=== PATIENT | male | born 1955 | race African-American/Black ===

== ENCOUNTER 2017-08-24 11:04 | Inpatient (IN) | payer OTHER ==
[2017-08-24 11:16] VITALS: BMI 27.0
[2017-08-24] MEDS ORDERED: KETOROLAC TROMETHAMINE 30 MG/1 ML VIAL IVPUSH ONE (11:31)
[2017-08-24] MEDS ORDERED: SODIUM CHLORIDE 1,000 ML IV STA (11:31)
--- NOTE | 2017-08-24 11:36 | PDOC ---
History of Present Illness - General Chief Complaint: Pain Stated Complaint: ABD PAIN Time Seen by Provider: 08/24/17 11:25 History Source: Patient - History of Present Illness Timing/Duration: reports: constant, getting worse Quality: reports: moderate Abdominal Pain Onset Location: reports: generalized abdomen Past History - Past Medical History Allergies/Adverse Reactions: Allergies Allergy/AdvReac Type Severity Reaction Status Date / Time No Known Allergies Allergy Verified 08/24/17 11:12 Home Medications: Ambulatory Orders Cetirizine HCl [Zyrtec -] 10 mg PO DAILY 08/24/17 Multivitamins [Multivit ([facility] Formulary)] 1 tab PO DAILY 08/24/17 COPD: No HTN: Yes (non-compliant) - Suicide/Smoking/Psychosocial Hx Smoking History: Current every day smoker Number of Cigarettes Smoked Daily: 20 Information on smoking cessation initiated: Yes 'Breaking Loose' booklet given: 08/24/17 Hx Alcohol Use: No Drug/Substance Use Hx: No Substance Use Type: None Review of Systems - Review of Systems Constitutional: No: Chills, Fever ABD/GI: Yes: Constipated. No: Blood Streaked Bowels, Diarrhea, Nausea, Rectal Bleeding, Vomiting *Physical Exam - Vital Signs Last Vital Signs Temp Pulse Resp BP Pulse Ox 97.8 F 95 H 18 155/75 95 08/24/17 11:07 08/24/17 11:07 08/24/17 11:07 08/24/17 11:07 08/24/17 11:07 - Physical Exam General Appearance: Yes: Appropriately Dressed. No: Apparent Distress HEENT: positive: Normal Voice Neck: positive: Supple Respiratory/Chest: negative: Respiratory Distress Gastrointestinal/Abdominal: positive: Normal Bowel Sounds, Tender (poorly localized ttp but sig tender to RLQ and LLQ), Soft. negative: Distended, Rebound Musculoskeletal: negative: CVA Tenderness Integumentary: positive: Dry, Warm Neurologic: positive: Fully Oriented, Alert, Normal Mood/Affect ED Treatment Course - LABORATORY CBC & Chemistry Diagram: 08/26/17 07:30 08/26/17 07:30 - RADIOLOGY Radiology Studies Ordered: Category Date Time Status ABDOMEN & PELVIS CT WITH CONTR [CT] Stat CT Scan 08/24/17 11:30 Ordered Medical Decision Making - Medical Decision Making 08/24/17 11:32 61 yo M, denies any pmhx, here w/ generalized abd pain x 3 days, constant and gettting worse, hurts to even move per pt. Has not had much of an appetite since pain started. Also c/o constipation x several days, took laxative yesterday and had an episode of diarrhea. No BRBPR, melena, n/v/f/c. Normal colonoscopy several years ago per pt. No recent unexplained weight loss. No similar pain in past. F/u at [facility]. See exam R/o diverticulitis, less likely appy Stable in NAD w/ poorly localized ttp on exam -pain control -IVF -labs -CT 08/24/17 11:36 08/24/17 13:58 Pt signed out to resident Hollins pending CT 08/24/17 13:58 *DC/Admit/Observation/Transfer Diagnosis at time of Disposition: Perforated diverticulum of large intestine - Referrals - Patient Instructions - Post Discharge Activity
[2017-08-24] MEDS ORDERED: KETOROLAC TROMETHAMINE 30 MG/1 ML VIAL ONE (12:09)
[2017-08-24 12:45] LABS: BASOPHIL 0.7 % (0-2.0); MCH 28.7 pg (25.7-33.7); MCHC 33.7 g/dl (32.0-35.9); MEAN CELL VOLUME 85.3 fl (80-96); MEAN PLT VOLUME 8.9 fl (7.5-11.1); NEUTROPHILS 77.9 % (42.8-82.8); PLATELET COUNT 241 K/MM3 (134-434); RDW 14.4 % (11.9-15.9); WHITE BLOOD COUNT 14.1 K/mm3 (4.0-10.0)
[2017-08-24 12:46] LABS: URINE APPEARANCE SLCLOUDY; URINE BILIRUBIN NEGATIVE (NEGATIVE); URINE BLOOD NEGATIVE (NEGATIVE); URINE COLOR AMBER; URINE GLUCOSE (UA) NEGATIVE (NEGATIVE); URINE KETONE TRACE (NEGATIVE); URINE NITRITE NEGATIVE (NEGATIVE); URINE PROTEIN NEGATIVE (NEGATIVE)
[2017-08-24 13:10] LABS: ALBUMIN 3.6 g/dl (3.4-5.0); ALK PHOS 75 U/L (45-117); ANION GAP 13 (8-16); BILIRUBIN,TOTAL 1.5 mg/dL (0.2-1.0); CALCIUM 8.9 mg/dL (8.5-10.1); CO2 22 mmol/L (21-32); CREATININE 1.3 mg/dL (0.7-1.3); GLUCOSE,RANDOM 83 mg/dL (74-106); SGOT/AST 12 U/L (15-37); SGPT/ALT 20 U/L (12-78); TOT PROT 7.1 g/dl (6.4-8.2)
[2017-08-24] MEDS ORDERED: morphine CARPU-JECT 4 MG/1 ML DISP.SYRIN IVPUSH ONE (13:38)
[2017-08-24] MEDS ORDERED: morphine SULFATE 4 MG/ML VIAL ONE ×2 (13:40→20:27)
--- NOTE | 2017-08-24 14:12 | PDOC ---
*Physical Exam - Vital Signs Last Vital Signs Temp Pulse Resp BP Pulse Ox 97.8 F 95 H 18 155/75 95 08/24/17 11:07 08/24/17 11:07 08/24/17 11:07 08/24/17 11:07 08/24/17 11:07 - Physical Exam Comments: 08/24/17 14:11 GENERAL: Awake, alert, and fully oriented, in no acute distress HEAD: No signs of trauma, normocephalic, atraumatic EYES: PERRLA, EOMI, sclera anicteric, conjunctiva clear ENT:hearing grossly normal, nares patent, oropharynx clear without exudates. Moist mucosa NECK: Normal ROM, supple,no JVD, or masses LUNGS: No distress, speaks full sentences, clear to auscultation bilaterally HEART: Regular rate and rhythm, normal S1 and S2, no murmurs, rubs or gallops, peripheral pulses normal and equal bilaterally. ABDOMEN: Soft, diffusely tender abdomen with R side predominance, normoactive bowel sounds. No guarding, no rigidity, no rebound. No masses. No CVA ttp. EXTREMITIES : Normal inspection, Normal range of motion, no edema. No clubbing or cyanosis. SKIN: Warm, Dry, normal turgor, no rashes or lesions noted. ED Treatment Course - LABORATORY CBC & Chemistry Diagram: 08/24/17 12:30 08/24/17 12:30 - ADDITIONAL ORDERS Additional order review: Laboratory Results 08/24/17 08/24/17 12:30 12:30 Sodium 139 Potassium 4.0 Chloride 104 Carbon Dioxide 22 Anion Gap 13 BUN 23 H Creatinine 1.3 Creat Clearance w eGFR 55.94 Random Glucose 83 Calcium 8.9 Total Bilirubin 1.5 H AST 12 L ALT 20 Alkaline Phosphatase 75 Total Protein 7.1 Albumin 3.6 Lipase 77 Urine Color Maura Urine Appearance Slcloudy Urine pH 5.0 Ur Specific [place] 1.028 Urine Protein Negative Urine Glucose (UA) Negative Urine Ketones Trace H Urine Blood Negative Urine Nitrite Negative Urine Bilirubin Negative Urine Urobilinogen 2.0 08/24/17 12:30 RBC 5.45 MCV 85.3 MCHC 33.7 RDW 14.4 MPV 8.9 Neutrophils % 77.9 Lymphocytes % 13.5 Monocytes % 6.9 Eosinophils % 1.0 Basophils % 0.7 - Medications Given in the ED: ED Medications Discontinued Medications Generic Name Dose Route Start Last Admin Trade Name Kell PRN Reason Stop Dose Admin Sodium Chloride 1,000 mls @ 1,000 mls/hr 08/24/17 11:31 08/24/17 12:06 Normal Saline - IV 08/24/17 12:30 1,000 mls/hr ASDIR STA Administration Ketorolac Tromethamine 30 mg 08/24/17 11:31 08/24/17 12:06 Toradol Injection - IVPUSH 08/24/17 11:32 30 mg ONCE ONE Administration Morphine Sulfate 4 mg 08/24/17 13:38 08/24/17 13:44 Morphine Injection - IVPUSH 08/24/17 13:39 4 mg ONCE ONE Administration Medical Decision Making - Medical Decision Making 08/24/17 14:13 61 yo with no sig pmh who presents w/ worsening, unremitting generalized abd pain of 3 days, aggravated w/ movement and associated with nausea and constipation. No other asx. complaints blood per rectum, dark stools, n/v/f/c. Physical exam with gen. abdominal ttp ( R side predominance). Hemodynamically stable. Recieved handoff from Ramya GARCIA. Last meal 2 days ago per patient. Last drink of coffee this AM (0700). ED Course noteable for CT AP to r/o divertuclitis vs appendicitis ( less likely ) CBC, CMP, Lipase, UA, 08/24/17 14:17 WBC: 14.1 08/24/17 14:17 CMP: Unremarkable UA: Trace Ketones. 1 L NS 08/24/17 17:05 CT AP: Acute sigmoid divertuclitis with adjacent extraluminal air consistent with small bowel perforation. Left page for Dr. Calvillo Surgeon marketing manager health communications. Metronidazole 500 mg IV, Ceftriaxone 1000 mg IV Spoke to Dr. Patino. Will see patient. 08/24/17 17:33 Microblogged admitting hospitalist. 08/24/17 17:46 Admit to hospitalist . *DC/Admit/Observation/Transfer Diagnosis at time of Disposition: Perforated diverticulum of large intestine - Discharge Dispostion Admit: Yes - Referrals - Patient Instructions - Post Discharge Activity
--- NOTE | 2017-08-24 16:08 | PDOC ---
*Physical Exam - Vital Signs Last Vital Signs Temp Pulse Resp BP Pulse Ox 97.8 F 95 H 18 155/75 95 08/24/17 11:07 08/24/17 11:07 08/24/17 11:07 08/24/17 11:07 08/24/17 11:07 - Physical Exam General Appearance: Yes: Nourished Neck: positive: Trachea midline Respiratory/Chest: positive: Lungs Clear, Normal Breath Sounds Cardiovascular: positive: Regular Rhythm, Regular Rate, S1, S2 Gastrointestinal/Abdominal: positive: Normal Bowel Sounds, Tender (llq ttp no rebound no guarding) Musculoskeletal: positive: Normal Inspection. negative: CVA Tenderness Integumentary: positive: Normal Color, Dry, Warm <Britney Atkinson - Last Filed: 08/24/17 16:06> - Vital Signs Last Vital Signs Temp Pulse Resp BP Pulse Ox 98.1 F 85 18 140/72 100 08/24/17 16:35 08/24/17 16:35 08/24/17 16:35 08/24/17 16:35 08/24/17 16:35 <Enriqueta Heaton - Last Filed: 08/24/17 16:55> - Vital Signs Last Vital Signs Temp Pulse Resp BP Pulse Ox 98.1 F 85 18 148/72 100 08/24/17 20:24 08/24/17 20:24 08/24/17 20:24 08/24/17 20:24 08/24/17 16:35 <Lindsay Jha - Last Filed: 08/24/17 21:34> ED Treatment Course - LABORATORY CBC & Chemistry Diagram: 08/24/17 12:30 08/24/17 12:30 - ADDITIONAL ORDERS Additional order review: Laboratory Results 08/24/17 08/24/17 12:30 12:30 Sodium 139 Potassium 4.0 Chloride 104 Carbon Dioxide 22 Anion Gap 13 BUN 23 H Creatinine 1.3 Creat Clearance w eGFR 55.94 Random Glucose 83 Calcium 8.9 Total Bilirubin 1.5 H AST 12 L ALT 20 Alkaline Phosphatase 75 Total Protein 7.1 Albumin 3.6 Lipase 77 Urine Color Maura Urine Appearance Slcloudy Urine pH 5.0 Ur Specific [place] 1.028 Urine Protein Negative Urine Glucose (UA) Negative Urine Ketones Trace H Urine Blood Negative Urine Nitrite Negative Urine Bilirubin Negative Urine Urobilinogen 2.0 08/24/17 12:30 RBC 5.45 MCV 85.3 MCHC 33.7 RDW 14.4 MPV 8.9 Neutrophils % 77.9 Lymphocytes % 13.5 Monocytes % 6.9 Eosinophils % 1.0 Basophils % 0.7 - Medications Given in the ED: ED Medications Discontinued Medications Generic Name Dose Route Start Last Admin Trade Name Freq PRN Reason Stop Dose Admin Sodium Chloride 1,000 mls @ 1,000 mls/hr 08/24/17 11:31 08/24/17 12:06 Normal Saline - IV 08/24/17 12:30 1,000 mls/hr ASDIR STA Administration Ketorolac Tromethamine 30 mg 08/24/17 11:31 08/24/17 12:06 Toradol Injection - IVPUSH 08/24/17 11:32 30 mg ONCE ONE Administration Morphine Sulfate 4 mg 08/24/17 13:38 08/24/17 13:44 Morphine Injection - IVPUSH 08/24/17 13:39 4 mg ONCE ONE Administration <Britney Atkinson - Last Filed: 08/24/17 16:06> - LABORATORY CBC & Chemistry Diagram: 08/24/17 12:30 08/24/17 12:30 - ADDITIONAL ORDERS Additional order review: Laboratory Results 08/24/17 08/24/17 12:30 12:30 Sodium 139 Potassium 4.0 Chloride 104 Carbon Dioxide 22 Anion Gap 13 BUN 23 H Creatinine 1.3 Creat Clearance w eGFR 55.94 Random Glucose 83 Calcium 8.9 Total Bilirubin 1.5 H AST 12 L ALT 20 Alkaline Phosphatase 75 Total Protein 7.1 Albumin 3.6 Lipase 77 Urine Color Maura Urine Appearance Slcloudy Urine pH 5.0 Ur Specific [place] 1.028 Urine Protein Negative Urine Glucose (UA) Negative Urine Ketones Trace H Urine Blood Negative Urine Nitrite Negative Urine Bilirubin Negative Urine Urobilinogen 2.0 08/24/17 12:30 RBC 5.45 MCV 85.3 MCHC 33.7 RDW 14.4 MPV 8.9 Neutrophils % 77.9 Lymphocytes % 13.5 Monocytes % 6.9 Eosinophils % 1.0 Basophils % 0.7 - Medications Given in the ED: ED Medications Discontinued Medications Generic Name Dose Route Start Last Admin Trade Name Freq PRN Reason Stop Dose Admin Sodium Chloride 1,000 mls @ 1,000 mls/hr 08/24/17 11:31 08/24/17 12:06 Normal Saline - IV 08/24/17 12:30 1,000 mls/hr ASDIR STA Administration Ketorolac Tromethamine 30 mg 08/24/17 11:31 08/24/17 12:06 Toradol Injection - IVPUSH 08/24/17 11:32 30 mg ONCE ONE Administration Morphine Sulfate 4 mg 08/24/17 13:38 08/24/17 13:44 Morphine Injection - IVPUSH 08/24/17 13:39 4 mg ONCE ONE Administration <Enriqueta Heaton - Last Filed: 08/24/17 16:55> - LABORATORY CBC & Chemistry Diagram: 08/24/17 12:30 08/24/17 12:30 - ADDITIONAL ORDERS Additional order review: Laboratory Results 08/24/17 08/24/17 12:30 12:30 Sodium 139 Potassium 4.0 Chloride 104 Carbon Dioxide 22 Anion Gap 13 BUN 23 H Creatinine 1.3 Creat Clearance w eGFR 55.94 Random Glucose 83 Calcium 8.9 Total Bilirubin 1.5 H AST 12 L ALT 20 Alkaline Phosphatase 75 Total Protein 7.1 Albumin 3.6 Lipase 77 Urine Color Maura Urine Appearance Slcloudy Urine pH 5.0 Ur Specific [place] 1.028 Urine Protein Negative Urine Glucose (UA) Negative Urine Ketones Trace H Urine Blood Negative Urine Nitrite Negative Urine Bilirubin Negative Urine Urobilinogen 2.0 Ur Leukocyte Esterase Negative 08/24/17 12:30 RBC 5.45 MCV 85.3 MCHC 33.7 RDW 14.4 MPV 8.9 Neutrophils % 77.9 Lymphocytes % 13.5 Monocytes % 6.9 Eosinophils % 1.0 Basophils % 0.7 - Medications Given in the ED: ED Medications Discontinued Medications Generic Name Dose Route Start Last Admin Trade Name Freq PRN Reason Stop Dose Admin Ceftriaxone Sodium 1,000 mg 08/24/17 17:30 08/24/17 17:52 Rocephin - IVPUSH 08/24/17 17:31 1,000 mg ONCE ONE Administration Sodium Chloride 1,000 mls @ 1,000 mls/hr 08/24/17 11:31 08/24/17 12:06 Normal Saline - IV 08/24/17 12:30 1,000 mls/hr ASDIR STA Administration Metronidazole 500 mg in 100 mls @ 100 mls/hr 08/24/17 16:58 08/24/17 17:16 Flagyl 500mg Premixed Ivpb - IVPB 08/24/17 17:57 100 mls/hr ONCE ONE Administration Levofloxacin 750 mg in 150 mls @ 100 mls/hr 08/24/17 16:59 08/24/17 18:06 Levaquin 750 Mg Premixed Ivpb - IVPB 08/24/17 18:28 Not Given ONCE ONE Ketorolac Tromethamine 30 mg 08/24/17 11:31 08/24/17 12:06 Toradol Injection - IVPUSH 08/24/17 11:32 30 mg ONCE ONE Administration Morphine Sulfate 4 mg 08/24/17 13:38 08/24/17 13:44 Morphine Injection - IVPUSH 08/24/17 13:39 4 mg ONCE ONE Administration <Lindsay Jha - Last Filed: 08/24/17 21:34> Medical Decision Making - Medical Decision Making 08/24/17 16:06 61 yo male with no pmhx here with co llq abd pain and suprapubic pain. no f/c n/ v. no urinary complaints. signed out to me by thony christian. pt seen and examined. min ttp on llq , no rebound no guarding. plan : fu ct results. labs noted mild elevated wbc 14, otherwise normal. danie franks with abx pendingct results. <Britney Atkinson - Last Filed: 08/24/17 16:06> - Medical Decision Making 08/24/17 16:54 CTAP Impression: Acute sigmoid diverticulitis is seen with an associated small amount of adjacent extraluminal air consistent with localized perforation. No abscess is identified. Mildly prominent main pancreatic duct. Correlate with outpatient contrast enhanced MRI/MRCP. Prominent atherosclerotic vascular calcifications, Reported By: Ramírez Pride MD 08/24/17 1646 <Enriqueta Heaton - Last Filed: 08/24/17 16:55> - Medical Decision Making 08/24/17 21:33 I was given pt's EKG to sign; Pt has been here 10 hours. He has minimal septal ST elevations and lateral flipped T's; pt has no old EKGs on file. Pt will require cardiac labs to be checked. <Lindsay Jha - Last Filed: 08/24/17 21:34> *DC/Admit/Observation/Transfer <Britney Atkinson - Last Filed: 08/24/17 16:06> - Attestations Scribe Attestion: 08/24/17 16:55 Documentation prepared by Enriqueta Haeton, acting as biomedical technician for Britney Atkinson MD <Enriqueta Heaton - Last Filed: 08/24/17 16:55> <Lindsay Jha - Last Filed: 08/24/17 21:34> Diagnosis at time of Disposition: Perforated diverticulum of large intestine
[2017-08-24] MEDS ORDERED: METRONIDAZOLE 500 MG PREMIXED 500 MG/100 ML MG IVPB ONE ×2 (16:58→17:07)
[2017-08-24] MEDS ORDERED: LEVOFLOXACIN 750 MG IVPB 750 MG/150 ML BAG IVPB ONE ×2 (16:59→17:08)
[2017-08-24] MEDS ORDERED: CEFTRIAXONE 1 GM/50 ML BAG ONE (17:46)
--- NOTE | 2017-08-24 18:28 | PN ---
Teaching Attending Note Name of Resident: Tito Chamorro ATTENDING PHYSICIAN STATEMENT I saw and evaluated the patient. I reviewed the resident's note and discussed the case with the resident. I agree with the resident's findings and plan as documented. SUBJECTIVE:61yo M with no PMH presented with abdominal pain x3 days. states he woke up in normal state of health started having lower abdominal tightness that persisted and worsened. started in LLQ and then spread throughout his abdomen. admits to anorexia during this time. drank sandrine therese with some relief as it caused copious belching. had 1 BM yesterday with some relief in pain. no symptoms in the past. denies Cp, SOB, fever, chills, N/V/C/D had colonoscopy x2 (last one 5 years ago done for routine reasons, pt reports as negative). denies any NSAID use. last ate Sunday night. OBJECTIVE: Last Vital Signs Temp Pulse Resp BP Pulse Ox 98.1 F 85 18 140/72 100 08/24/17 16:35 08/24/17 16:35 08/24/17 16:35 08/24/17 16:35 08/24/17 16:35 General NAD Abdomen soft +distended, +guarding hypoactive BS periumbilical and LLQ tenderness ASSESSMENT AND PLAN: 61yo M with PMH continuous nicotine dependence presented to the ER with abdominal pain and found to have acute sigmoid diverticulitis with perforation 1. acute sigmoid diverticulitis with perforation- Medicine admission. NPO, IVF , Flagyl and Levaquin IV. Surgery consulted and spoke with ER resident. pain and nausea control. 2. Continuous nicotine dependence- counseld on risks assoc with continued nicotine abuse. informed him he can not leave the building to smoke. nicotine patch 3. DVT ppx- will start lovenox post-op.
--- NOTE | 2017-08-24 19:03 | HP ---
CHIEF COMPLAINT: Abdominal pain PCP: HISTORY OF PRESENT ILLNESS: 61 year old female with a history hypertension of left hip replacement presents to the hospital with a 2 day hx of abdominal pain. Patient states that on Sunday, he felt an uneasy sensation in his abdomen that felt like his belt was too tight around his waist. Patient reports that the sensation later that day turned into pain that made him unable to eat after 6pm. He states that the pain is stabbing and throbbing in quality and is localized mainly in the lower left and lower right quadrant at a 9/10 in severity. Patient states that it does not radiate. Since Sunday, patient has not eaten anything, but he has drank water and sandrine therese, which made him belch. The pain worsened since Sunday, which prompted him to arrive at the ED today. Patient denies chest pain, shortness of breath, diarrhea, nausea, vomiting, fevers, or chills. Patient states that he had a colonoscopy around 5 years ago and another 5 years prior to that, which he states were normal, but is unable to recall exactly. 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 ER course was notable for: (1) WBC 14.1 (2) Tachycardia @ 95 (3) Diverticulitis with perforation on CT scan Recent Travel: none PAST MEDICAL HISTORY: Hypertension PAST SURGICAL HISTORY: L hip replacement Social History: Smokin pack year history, current smoker (1 pack a day) Alcohol: none Drugs: none Family History: mother Allergies No Known Allergies Allergy (Verified 08/24/17 11:12) HOME MEDICATIONS: Home Medications Medication Instructions Recorded Cetirizine HCl [Zyrtec -] 10 mg PO DAILY 08/24/17 Multivitamins [Multivit ([facility] 1 tab PO DAILY 08/24/17 Formulary)] REVIEW OF SYSTEMS CONSTITUTIONAL: Absent: fever, chills, diaphoresis, generalized weakness, malaise, loss of appetite, weight change HEENT: Absent: rhinorrhea, nasal congestion, throat pain, throat swelling, difficulty swallowing, mouth swelling, ear pain, eye pain, visual changes CARDIOVASCULAR: Absent: chest pain, syncope, palpitations, irregular heart rate, lightheadedness , peripheral edema RESPIRATORY: Absent: cough, shortness of breath, dyspnea with exertion, orthopnea, wheezing, stridor, hemoptysis GASTROINTESTINAL: abdominal pain, abdominal distension Absent: nausea, vomiting, diarrhea, constipation, melena, hematochezia GENITOURINARY: Absent: dysuria, frequency, urgency, hesitancy, hematuria, flank pain, genital pain MUSCULOSKELETAL: Absent: myalgia, arthralgia, joint swelling, back pain, neck pain SKIN: Absent: rash, itching, pallor HEMATOLOGIC/IMMUNOLOGIC: Absent: easy bleeding, easy bruising, lymphadenopathy, frequent infections ENDOCRINE: Absent: unexplained weight gain, unexplained weight loss, heat intolerance, cold intolerance NEUROLOGIC: Absent: headache, focal weakness or paresthesias, dizziness, unsteady gait, seizure, mental status changes, bladder or bowel incontinence PSYCHIATRIC: Absent: anxiety, depression, suicidal or homicidal ideation, hallucinations. PHYSICAL EXAMINATION Vital Signs - 24 hr 08/24/17 08/24/17 11:07 16:35 Temperature 97.8 F 98.1 F Pulse Rate 95 H Pulse Rate [ 85 Apical] Respiratory 18 18 Rate Blood Pressure 155/75 Blood Pressure 140/72 [Right Arm] O2 Sat by Pulse 95 100 Oximetry (%) GENERAL: Awake, alert, and fully oriented, in no acute distress. HEAD: Normal with no signs of trauma. EYES: Pupils equal, round and reactive to light, extraocular movements intact, sclera anicteric, conjunctiva clear. No lid lag. EARS, NOSE, THROAT: Ears normal, nares patent, oropharynx clear without exudates. Moist mucous membranes. NECK: Normal range of motion, supple without lymphadenopathy, JVD, or masses. LUNGS: Breath sounds equal, clear to auscultation bilaterally. No wheezes, and no crackles. No accessory muscle use. HEART: Regular rate and rhythm, normal S1 and S2 without murmur, rub or gallop. ABDOMEN: Soft, tender, distended, hypoactive bowel sounds, no guarding, no rebound, no masses. No hepatomegaly or splenomegaly. MUSCULOSKELETAL: Normal range of motion at all joints. No bony deformities or tenderness. No CVA tenderness. UPPER EXTREMITIES: 2+ pulses, warm, well-perfused. No cyanosis. No clubbing. No peripheral edema. LOWER EXTREMITIES: 2+ pulses, warm, well-perfused. No calf tenderness. No peripheral edema. NEUROLOGICAL: Cranial nerves II-XII intact. Normal speech. Normal gait. PSYCHIATRIC: Cooperative. Good eye contact. Appropriate mood and affect. SKIN: Warm, dry, normal turgor, no rashes or lesions noted, normal capillary refill. Laboratory Results - last 24 hr 08/24/17 08/24/17 08/24/17 12:30 12:30 12:30 WBC 14.1 H RBC 5.45 Hgb 15.7 Hct 46.5 MCV 85.3 MCH 28.7 MCHC 33.7 RDW 14.4 Plt Count 241 MPV 8.9 Neutrophils % 77.9 Lymphocytes % 13.5 Monocytes % 6.9 Eosinophils % 1.0 Basophils % 0.7 Sodium 139 Potassium 4.0 Chloride 104 Carbon Dioxide 22 Anion Gap 13 BUN 23 H Creatinine 1.3 Creat Clearance w eGFR 55.94 Random Glucose 83 Calcium 8.9 Total Bilirubin 1.5 H AST 12 L ALT 20 Alkaline Phosphatase 75 Total Protein 7.1 Albumin 3.6 Lipase 77 Urine Color Maura Urine Appearance Slcloudy Urine pH 5.0 Ur Specific [place] 1.028 Urine Protein Negative Urine Glucose (UA) Negative Urine Ketones Trace H Urine Blood Negative Urine Nitrite Negative Urine Bilirubin Negative Urine Urobilinogen 2.0 Active Medications Heparin Sodium (Porcine) (Heparin -) 5,000 unit SQ TID NAVIN Dextrose/Sodium Chloride (D5-Ns -) 1,000 mls @ 100 mls/hr IV ASDIR NAVIN Morphine Sulfate (Morphine Sulfate) 4 mg IVPUSH Q6H PRN PRN Reason: PAIN Nicotine (Nicoderm Patch -) 14 mg TD DAILY [facility] CBC, BMP 08/24/17 12:30 08/24/17 12:30 EKG: NSR w/ prolonged QT, some ST/T wave abnormalities, possible minimal ST segment elevation septally Imaging: Acute sigmoid diverticulitis is seen with an associated small amount of adjacent extraluminal air consistent with localized perforation. No abscess is identified. Mildly prominent main pancreatic duct. Correlate with outpatient contrast enhanced MRI/MRCP. Prominent atherosclerotic vascular calcifications, ASSESSMENT/PLAN: 61 year old male with a past medical history of hypertension and L hip replacement presents to the hospital with acute abdominal pain likely 2/2 diverticulitis and bowel perforation #Sigmoid Diverticulitis with Bowel Perforation: -NPO -Pain control w/ morphine 4mg Q6 PRN -leukocytosis likely 2/2 -Fluid resuscitation D5NS @ 100 -surgical consultation Dr. Hadley -antibiotic therapy was given in ED with levoquin and flagyl -EKG showed prolonged QT -> DC levoquin and start ceftriaxone; Mild ST elevation, draw trops #Hypertension: patient was previously on losartan for blood pressure but stopped taking it a long time ago, currently controlled -no acute intervention at this time #Smoking: patient is a current smoker and is concerned about not being able to while hospitalized -provide nicotine patch 14mg PRN FEN -D5NS @ 100cc/hr -electrolytes normal -NPO Prophylaxis -SCDs Disposition -Admit to med-surg -Full Code Visit type - Emergency Visit Emergency Visit: Yes ED Registration Date: 08/24/17 Care time: The patient presented to the Emergency Department on the above date and was hospitalized for further evaluation of their emergent condition. - New Patient This patient is new to me today: Yes Date on this admission: 08/25/17 - Critical Care Critical Care patient: No
[2017-08-24 20:08] LABS: URINE LEUK ESTERASE Negative (NEGATIVE)
[2017-08-24] MEDS: DEXTROSE 5%-NORMAL SALINE 1,000 ML IV SCH (20:37)
[2017-08-24] MEDS: morphine SULFATE 4 MG/ML VIAL IVPUSH PRN (20:37)
[2017-08-24] MEDS ORDERED: HEPARIN NA (PORCINE) 5,000 UNITS/ML 1ML VIAL SQ SCH (22:00)
[2017-08-24] MEDS: NICOTINE 14 MG/24 HOURS TOPICAL PATCH TD SCH (22:37)
[2017-08-24 23:47] LABS: TROPONIN I 0.02 ng/ml (0.00-0.05)
[2017-08-25] MEDS ORDERED: CEFTRIAXONE 1 GM in DEXTROSE 5%-WATER - 50 ML IVPB SCH (00:15)
[2017-08-25] MEDS ORDERED: CEFTRIAXONE 1 G/50 ML PREMIX 50 ML IVPB SCH (01:00)
[2017-08-25] MEDS: METRONIDAZOLE 500 MG PREMIXED 500 MG/100 ML MG IVPB SCH ×3 (01:25→17:15)
[2017-08-25] MEDS: morphine SULFATE 4 MG/ML VIAL IVPUSH PRN ×2 (06:17→12:25)
[2017-08-25] MEDS: DEXTROSE 5%-NORMAL SALINE 1,000 ML IV SCH (06:56)
[2017-08-25 07:47] LABS: BASOPHIL 0.6 % (0-2.0); EOSINOPHIL 2.7 % (0-4.5); MCH 28.5 pg (25.7-33.7); MCHC 33.5 g/dl (32.0-35.9); MEAN CELL VOLUME 85.2 fl (80-96); MEAN PLT VOLUME 8.8 fl (7.5-11.1); NEUTROPHILS 74.8 % (42.8-82.8); PLATELET COUNT 200 K/MM3 (134-434); RDW 14.4 % (11.9-15.9)
[2017-08-25 08:20] LABS: INR 1.14 (0.82-1.09); PROTHROMBIN TIME (PATIENT) 12.9 SEC (9.98-11.88)
[2017-08-25 08:22] LABS: ACTIVATED PTT 34.7 SECONDS (26.9-34.4)
[2017-08-25 08:23] LABS: ALBUMIN 2.9 g/dl (3.4-5.0); ANION GAP 8 (8-16); BILIRUBIN,TOTAL 1.3 mg/dL (0.2-1.0); CALCIUM 7.8 mg/dL (8.5-10.1); CO2 25 mmol/L (21-32); GLUCOSE,RANDOM 95 mg/dL (74-106); MAGNESIUM 2.1 mg/dL (1.8-2.4); PHOSPHOROUS 2.6 mg/dL (2.5-4.9); SGOT/AST 10 U/L (15-37); SGPT/ALT 15 U/L (12-78)
[2017-08-25 08:25] LABS: ALK PHOS 63 U/L (45-117); TOT PROT 5.8 g/dl (6.4-8.2)
[2017-08-25] MEDS: NICOTINE 14 MG/24 HOURS TOPICAL PATCH TD SCH (09:49)
--- NOTE | 2017-08-25 11:11 | PN ---
Progress Note (short form) - Note Progress Note: c/o dry mouth and diffuse pruritis. states he takes zyrtec daily and have not taken it and feeling intense pruritis of B/L UE. pain has improved. now more localized over LLQ. denies CP, SOB, fever, chills, N/V/C/D. no BM since arrival Current Medications Generic Name Dose Route Start Last Admin Trade Name Freq PRN Reason Stop Dose Admin Dextrose/Sodium Chloride 1,000 mls @ 100 mls/hr 08/24/17 19:15 08/25/17 06:56 D5-Ns - IV 100 mls/hr ASDIR NAVIN Administration Metronidazole 500 mg in 100 mls @ 100 mls/hr 08/25/17 01:00 08/25/17 09:49 Flagyl 500mg Premixed Ivpb - IVPB 100 mls/hr Q8H-IV NAVIN Administration CEFTRIAXONE 1 G/50 ML PREMIX 50 mls @ 100 mls/hr 08/25/17 13:00 Ceftriaxone 1 Gm-D5w Bag IVPB DAILY NAVIN Morphine Sulfate 4 mg 08/24/17 19:13 08/25/17 06:17 Morphine Sulfate IVPUSH 4 mg Q6H PRN Administration PAIN Nicotine 14 mg 08/24/17 19:45 08/25/17 09:49 Nicoderm Patch - TD 14 mg DAILY NAVIN Administration Last Vital Signs Temp Pulse Resp BP Pulse Ox 98.7 F 67 20 153/73 97 08/25/17 09:40 08/25/17 09:40 08/25/17 09:40 08/25/17 09:40 08/24/17 22:00 General NAD CV S1 s2 RRR no murmur/rub/gallop Lungs CTA B/L no wheezing/rales/rhonchi Abdomen soft +RLQ/LLQ tenderness no involuntary guarding. normoactivs BS. CBCD WBC 10.0 K/mm3 (4.0-10.0) 08/25/17 06:45 RBC 4.86 M/mm3 (4.00-5.60) 08/25/17 06:45 Hgb 13.9 GM/dL (11.7-16.9) D 08/25/17 06:45 Hct 41.4 % (35.4-49) 08/25/17 06:45 MCV 85.2 fl (80-96) 08/25/17 06:45 MCHC 33.5 g/dl (32.0-35.9) 08/25/17 06:45 RDW 14.4 % (11.9-15.9) 08/25/17 06:45 Plt Count 200 K/MM3 (134-434) 08/25/17 06:45 MPV 8.8 fl (7.5-11.1) 08/25/17 06:45 CMP Sodium 141 mmol/L (136-145) 08/25/17 06:45 Potassium 4.0 mmol/L (3.5-5.1) 08/25/17 06:45 Chloride 108 mmol/L (98-107) H 08/25/17 06:45 Carbon Dioxide 25 mmol/L (21-32) 08/25/17 06:45 Anion Gap 8 (8-16) 08/25/17 06:45 BUN 20 mg/dL (7-18) H 08/25/17 06:45 Creatinine 1.0 mg/dL (0.7-1.3) D 08/25/17 06:45 Creat Clearance w eGFR > 60 (>60) 08/25/17 06:45 Calcium 7.8 mg/dL (8.5-10.1) L 08/25/17 06:45 Total Bilirubin 1.3 mg/dL (0.2-1.0) H 08/25/17 06:45 AST 10 U/L (15-37) L 08/25/17 06:45 ALT 15 U/L (12-78) D 08/25/17 06:45 Alkaline Phosphatase 63 U/L (45-117) 08/25/17 06:45 Total Protein 5.8 g/dl (6.4-8.2) L 08/25/17 06:45 Albumin 2.9 g/dl (3.4-5.0) L 08/25/17 06:45 ASSESSMENT AND PLAN: 61yo M with PMH continuous nicotine dependence presented to the ER with abdominal pain and found to have acute sigmoid diverticulitis with perforation 1. acute sigmoid diverticulitis with perforation- clinically stable. will cont NPO, IVF, ceftriaxone, Flagyl. Evaluated by surgery adn will opt for medical management at this time as pt is clinically stable. will need repeat imaging and colonoscopy as outpatient. cont pain and nausea control 2. B/L UE pruritis- was evaluated by clinical rn manager in the past and never determined to find allergen. possible stress induced. will give benadyrl prn. instructed can have sedating effect and to use with caution 3. MELISSA- likely dehydration. now resolved. on IVF, avoid nephrotoxic agents 4. Elevated BP- likely due to pain. will moitor for now. if persists will consider starting medication 5. Continuous nicotine dependence- counseld on risks assoc with continued nicotine abuse. informed him he can not leave the building to smoke. nicotine patch 6. DVT ppx- will start lovenox Visit type - Emergency Visit Emergency Visit: Yes ED Registration Date: 08/24/17 Care time: The patient presented to the Emergency Department on the above date and was hospitalized for further evaluation of their emergent condition. - New Patient This patient is new to me today: No - Critical Care Critical Care patient: No - Discharge Referral Referred to [facility] Med P.C.: No
[2017-08-25] MEDS: ENOXAPARIN NA (PORCINE) 40 MG/0.4 ML DISP.SYRIN SQ SCH (13:13)
[2017-08-25] MEDS: CEFTRIAXONE 1 G/50 ML PREMIX 50 ML IVPB SCH (13:13)
--- NOTE | 2017-08-25 14:10 | PN ---
Progress Note (short form) - Note Progress Note: surgery pt seen and examined this am. full consult dictated. 61m with last colonoscopy 6 years ago, presents with 2 days abd pain , wbc 14, and ct showing complicated perforated contained diverticulitis. Pt admitted on Rocephin/Flagyl with normalization of wbc, no fever, and improvement in pain. on exam abd is soft, with mild llq localized tenderness. Plan- complicated diverticulitis >>> malignancy. Pt responding well to medical managment and does not want surgery becuase he does not want a colostomy. Cont npo until no tenderness. Recommend 5 day iv abx. If medical management successful would need colonoscopy in 6 weeks and should consider elective single stage partial colectomy. Any emergent surgery in the acute setting would require a laparotomy and a colostomy. Pt assumes small risk of delaying the diagnosis of a malignancy.
[2017-08-26] MEDS: morphine SULFATE 4 MG/ML VIAL IVPUSH PRN ×3 (00:09→18:46)
[2017-08-26] MEDS: METRONIDAZOLE 500 MG PREMIXED 500 MG/100 ML MG IVPB SCH ×3 (02:30→17:46)
[2017-08-26] MEDS: DEXTROSE 5%-NORMAL SALINE 1,000 ML IV SCH ×3 (04:53→21:47)
--- NOTE | 2017-08-26 08:38 | PN ---
Progress Note (short form) - Note Progress Note: surgery pt seen and examined some improvement. abd soft, still llq tenderness plan- keep npo, iv abx till wed minimum
[2017-08-26 08:49] LABS: BASOPHIL 0.6 % (0-2.0); EOSINOPHIL 2.7 % (0-4.5); MCH 28.9 pg (25.7-33.7); MCHC 34.2 g/dl (32.0-35.9); MEAN CELL VOLUME 84.5 fl (80-96); MEAN PLT VOLUME 8.8 fl (7.5-11.1); NEUTROPHILS 74.1 % (42.8-82.8); PLATELET COUNT 216 K/MM3 (134-434); WHITE BLOOD COUNT 9.8 K/mm3 (4.0-10.0)
[2017-08-26] MEDS: CEFTRIAXONE 1 G/50 ML PREMIX 50 ML IVPB SCH (08:59)
[2017-08-26 09:12] LABS: ALBUMIN 2.8 g/dl (3.4-5.0); ANION GAP 11 (8-16); CALCIUM 8.3 mg/dL (8.5-10.1); CO2 21 mmol/L (21-32); GLUCOSE,RANDOM 98 mg/dL (74-106)
[2017-08-26 09:16] LABS: ALK PHOS 61 U/L (45-117); BILIRUBIN,TOTAL 0.9 mg/dL (0.2-1.0); CREATININE 0.9 mg/dL (0.7-1.3); SGOT/AST 10 U/L (15-37); SGPT/ALT 15 U/L (12-78); TOT PROT 5.9 g/dl (6.4-8.2)
[2017-08-26] MEDS ORDERED: METOPROLOL TARTRATE 5 MG/5 ML VIAL IVPUSH PRN (10:03)
[2017-08-26] MEDS ORDERED: METOPROLOL TARTRATE 5 MG/5 ML VIAL IVPB PRN (10:15)
[2017-08-26] MEDS: NICOTINE 21 MG/24 HOURS TOPICAL PATCH TD SCH (10:33)
[2017-08-26] MEDS: ENOXAPARIN NA (PORCINE) 40 MG/0.4 ML DISP.SYRIN SQ SCH (10:33)
--- NOTE | 2017-08-26 10:39 | PN ---
Progress Note (short form) - Note Progress Note: states pain continues to improve. had 1 loose/soft BM last night. denies CP, SOB , fever, chills, N/V/C/D. Current Medications Generic Name Dose Route Start Last Admin Trade Name Freq PRN Reason Stop Dose Admin Diphenhydramine HCl 25 mg 08/25/17 11:44 08/26/17 00:09 Benadryl Injection - IVPB 25 mg Q4H PRN Administration pruritis Enoxaparin Sodium 40 mg 08/25/17 11:45 08/26/17 10:33 Lovenox - SQ 40 mg DAILY NAVIN Administration Dextrose/Sodium Chloride 1,000 mls @ 100 mls/hr 08/24/17 19:15 08/26/17 08:59 D5-Ns - IV 100 mls/hr ASDIR NAVIN Administration Metronidazole 500 mg in 100 mls @ 100 mls/hr 08/25/17 01:00 08/26/17 10:33 Flagyl 500mg Premixed Ivpb - IVPB 100 mls/hr Q8H-IV NAVIN Administration CEFTRIAXONE 1 G/50 ML PREMIX 50 mls @ 100 mls/hr 08/25/17 13:00 08/26/17 08: 59 Ceftriaxone 1 Gm-D5w Bag IVPB 100 mls/hr DAILY NAVIN Administration Metoprolol Tartrate 5 mg 08/26/17 10:15 Lopressor Injection - IVPB Q8H PRN HYPERTENSION Morphine Sulfate 4 mg 08/24/17 19:13 08/26/17 08:29 Morphine Sulfate IVPUSH 4 mg Q6H PRN Administration PAIN Nicotine 21 mg 08/26/17 10:00 08/26/17 10:33 Nicoderm Patch - TD 21 mg DAILY NAVIN Administration Last Vital Signs Temp Pulse Resp BP Pulse Ox 98.1 F 62 18 147/74 95 08/26/17 04:00 08/26/17 04:00 08/26/17 04:00 08/26/17 04:00 08/25/17 21:00 General mildly anxious CV S1 s2 RRR no murmur/rub/gallop Lungs CTA B/L no wheezing/rales/rhonchi Abdomen soft +LLQ tenderness no involuntary guarding. normoactivs BS. CBCD WBC 9.8 K/mm3 (4.0-10.0) 08/26/17 07:30 RBC 4.63 M/mm3 (4.00-5.60) 08/26/17 07:30 Hgb 13.4 GM/dL (11.7-16.9) 08/26/17 07:30 Hct 39.1 % (35.4-49) 08/26/17 07:30 MCV 84.5 fl (80-96) 08/26/17 07:30 MCHC 34.2 g/dl (32.0-35.9) 08/26/17 07:30 RDW 14.0 % (11.9-15.9) 08/26/17 07:30 Plt Count 216 K/MM3 (134-434) 08/26/17 07:30 MPV 8.8 fl (7.5-11.1) 08/26/17 07:30 CMP Sodium 143 mmol/L (136-145) 08/26/17 07:30 Potassium 3.8 mmol/L (3.5-5.1) 08/26/17 07:30 Chloride 111 mmol/L (98-107) H 08/26/17 07:30 Carbon Dioxide 21 mmol/L (21-32) 08/26/17 07:30 Anion Gap 11 (8-16) 08/26/17 07:30 BUN 12 mg/dL (7-18) D 08/26/17 07:30 Creatinine 0.9 mg/dL (0.7-1.3) 08/26/17 07:30 Creat Clearance w eGFR > 60 (>60) 08/26/17 07:30 Calcium 8.3 mg/dL (8.5-10.1) L 08/26/17 07:30 Total Bilirubin 0.9 mg/dL (0.2-1.0) D 08/26/17 07:30 AST 10 U/L (15-37) L 08/26/17 07:30 ALT 15 U/L (12-78) 08/26/17 07:30 Alkaline Phosphatase 61 U/L (45-117) 08/26/17 07:30 Total Protein 5.9 g/dl (6.4-8.2) L 08/26/17 07:30 Albumin 2.8 g/dl (3.4-5.0) L 08/26/17 07:30 ASSESSMENT AND PLAN: 61yo M with PMH continuous nicotine dependence presented to the ER with abdominal pain and found to have acute sigmoid diverticulitis with perforation 1. acute sigmoid diverticulitis with perforation- clinically stable. will cont NPO, IVF, ceftriaxone, Flagyl. cont medical managment for now. surgery on board. will need repeat imaging and colonoscopy as outpatient. cont pain and nausea control 2. B/L UE pruritis- was evaluated by motorcoach operator in the past and never determined to find allergen. possible stress induced. improved with benadryl 3. MELISSA- likely dehydration. now resolved. on IVF, avoid nephrotoxic agents 4. Elevated BP- likely due to pain vs anxiety. pt is very anxious and pre- occuipied with possibility of future in the future. start metoprolol IVPB prn for SBP >160. states he was on antihypertensives in the past 5. Continuous nicotine dependence- counseled on risks assoc with continued nicotine abuse nicotine patch 6. DVT ppx- lovenox Visit type - Emergency Visit Emergency Visit: Yes ED Registration Date: 08/24/17 Care time: The patient presented to the Emergency Department on the above date and was hospitalized for further evaluation of their emergent condition. - New Patient This patient is new to me today: No - Critical Care Critical Care patient: No - Discharge Referral Referred to [facility] Med P.C.: No
--- NOTE | 2017-08-26 16:42 | CONS ---
DATE OF CONSULTATION: 08/25/2017 REASON FOR CONSULTATION: Complicated diverticulitis. This is an emergency room consultation. The patient was subsequently admitted to the floor and is being seen and examined as an inpatient. BRIEF HISTORY: This is a 61-year-old male with a previous history of diverticulosis, presents with a 2-day history of left lower quadrant abdominal pain. His last colonoscopy was 6 years ago and he states it was unremarkable with the exception of diverticulosis. He was noted to have an elevated white blood cell count of 14, [address] scan of his abdomen and pelvis, which was suggestive of complicated , perforated, yet contained significant diverticulitis. He was admitted to the hospital with Rocephin and Flagyl antibiotic overnight and his white blood cell count came down to normal and he has had no fevers with improvement in his pain. PAST MEDICAL HISTORY: Hypertension. PAST SURGICAL HISTORY: Left hip replacement. SOCIAL HISTORY: Positive for tobacco; he has been encouraged to quit. He has no known drug allergies. HOME MEDICATIONS: Zyrtec and multivitamins. FAMILY HISTORY: Noncontributory. REVIEW OF SYSTEMS: General: He denies fatigue or malaise. Cardiac: He denies chest pain or palpitations. Respiratory: He denies shortness of breath or wheeze. Gastrointestinal: No nausea or vomiting. Genitourinary: He denies dysuria. Musculoskeletal: He denies joint pain, joint swelling. Psychiatric: He denies anxiety, depression and hearing voices. PHYSICAL EXAMINATION: General: This is a well-developed, well-nourished 61-year-old male in no distress. Vital Signs: He is afebrile and has been since admission. HEENT: His head is normocephalic, his sclerae anicteric. Neck: Supple. Chest: Clear. Abdomen: Soft. He has mild left lower quadrant tenderness with localized guarding. He has no surgical scars, no obvious hernias. Extremities: No edema. REVIEW OF LABORATORY: His white blood cell count was 14.1 on admission, is 10.0 today. His chemistries are unremarkable with the exception of a mildly elevated total bilirubin. REVIEW OF IMAGING: He has a CT scan of his abdomen and pelvis, which shows acute sigmoid diverticulitis with adjacent extraluminal air, consistent with a localized perforation. There is also a mildly prominent pancreatic duct noted and the radiology recommends further workup with an outpatient MRI/MRCP. There are also atherosclerotic vascular calcifications noted. ASSESSMENT: This is a 61-year-old male with previous colonoscopy 6 years ago, presents with left lower quadrant abdominal pain, left lower quadrant tenderness with guarding, and leukocytosis. He was found to have acute, likely diverticulitis on CT scan and, since admission with intravenous antibiotics, his symptoms have improved, his white blood cell count has returned to normal, and he has had no fevers. Clinically, this is acute, complicated diverticulitis responding to medical management. There is also a small chance that this is a malignancy that has perforated; however, it is unlikely with a colonoscopy 6 years ago. At this point, the patient wishes to continue with medical management. He understands that surgery in this setting would require a laparotomy, a partial colectomy, and a colostomy and he does not wish to undergo. He understands that there is a small risk of delaying a diagnosis of malignancy and he assumes that risk. Recommend continue IV Rocephin and Flagyl; this will cover Escherichia coli and other enteric as well as [id number] melba. Continue n.p.o. until his tenderness resolves. He will require a 5-day hospital stay with intravenous antibiotics, as with the standard of care. If medical management is successful, the patient should have a colonoscopy in 6 weeks' time and should strongly consider elective sigmoid resection to prevent future recurrence. This could likely be done laparoscopically in one stage. DO MILES MOISE/[id number] MTDD
--- NOTE | 2017-08-26 17:36 | CONS ---
DATE OF CONSULTATION: DATE OF DICTATION: 08/25/2017 ADDENDUM The incidental findings on CT scan of a dilated pancreatic duct and significant atherosclerotic calcifications in the blood vessels to be managed by the Medical Team. These are incidental findings and not related to the acute sigmoid diverticulitis, which I was consulted on. DO MILES MOISE/[id number]
[2017-08-27] MEDS: METRONIDAZOLE 500 MG PREMIXED 500 MG/100 ML MG IVPB SCH ×3 (02:01→17:30)
[2017-08-27] MEDS: ENOXAPARIN NA (PORCINE) 40 MG/0.4 ML DISP.SYRIN SQ SCH (09:30)
[2017-08-27] MEDS: NICOTINE 21 MG/24 HOURS TOPICAL PATCH TD SCH (09:30)
[2017-08-27] MEDS: morphine SULFATE 4 MG/ML VIAL IVPUSH PRN (09:30)
[2017-08-27] MEDS: CEFTRIAXONE 1 G/50 ML PREMIX 50 ML IVPB SCH (09:30)
[2017-08-27] MEDS: DEXTROSE 5%-NORMAL SALINE 1,000 ML IV SCH (09:31)
--- NOTE | 2017-08-27 11:39 | EKG ---
Test Reason : Blood Pressure : / mmHG Vent. Rate : 074 BPM Atrial Rate : 074 BPM P-R Int : 144 ms QRS Dur : 096 ms QT Int : 416 ms P-R-T Axes : 069 -18 094 degrees QTc Int : 461 ms NORMAL SINUS RHYTHM POSSIBLE LEFT ATRIAL ENLARGEMENT PROLONGED QT ABNORMAL ECG NO PREVIOUS ECGS AVAILABLE Confirmed by TOMI VAUGHN, BYRON ([id number]) on 08/27/2017 11:38:51 AM Referred By: Confirmed By:BYRON KRISHNA MD
--- NOTE | 2017-08-27 13:46 | PN ---
Teaching Attending Note Name of Resident: Tito Chamorro ATTENDING PHYSICIAN STATEMENT I saw and evaluated the patient. I reviewed the resident's note and discussed the case with the resident. I agree with the resident's findings and plan as documented. SUBJECTIVE:states pain has improved. denies Cp, SOB, fever, chills, N/V/C/D OBJECTIVE: Last Vital Signs Temp Pulse Resp BP Pulse Ox 98.0 F 60 20 152/97 96 08/27/17 10:00 08/27/17 10:00 08/27/17 10:00 08/27/17 10:00 08/26/17 20:10 General NAD Abdomen soft +LLQ tenderness on deep palpation. ND ASSESSMENT AND PLAN: 61yo M with PMH continuous nicotine dependence presented to the ER with abdominal pain and found to have acute sigmoid diverticulitis with perforation 1. acute sigmoid diverticulitis with perforation- clinically stable. pain mostly resolved. now some tenderness in RLQ. awaiting to hear from surgery about allowing clear liquids. as per pt he was told he could start today. will wait to [facility]. cont NPO, IVF, ceftriaxone, Flagyl. surgery on board. will need repeat imaging and colonoscopy as outpatient. cont pain and nausea control 2. B/L UE pruritis- was evaluated by motorcycle racer in the past and never determined to find allergen. possible stress induced. improved with benadryl 3. MELISSA- likely dehydration. now resolved. on IVF, avoid nephrotoxic agents 4. Elevated BP- likely due to pain vs anxiety. pt is very anxious and pre- occuipied with possibility of future in the future. start metoprolol IVPB prn for SBP >160. states he was on antihypertensives in the past 5. Continuous nicotine dependence- counseled on risks assoc with continued nicotine abuse. on nicotine patch 6. DVT ppx- lovenox 7. PLan is for IV abx until Sunday (08/29) and if clinically improved can go home with close outpatient follow up. pt verbalized understanding and agreement with plan.
--- NOTE | 2017-08-27 17:27 | PN ---
Physical Exam: SUBJECTIVE: Patient seen and examined at bedside. Denies abdominal pain, nausea , vomiting, diarrhea, chest pain, SOB. OBJECTIVE: Vital Signs Period Temp Pulse Resp BP Sys/Ar[place]o Pulse Ox Last 24 Hr 97.7 F-98.4 F 60-68 16-20 146-161/76-97 96 GENERAL: Awake, alert, and fully oriented, in no acute distress. HEAD: Normal with no signs of trauma. EYES: Pupils equal, round and reactive to light, extraocular movements intact, sclera anicteric, conjunctiva clear. No lid lag. EARS, NOSE, THROAT: Ears normal, nares patent, oropharynx clear without exudates. Moist mucous membranes. NECK: Normal range of motion, supple without lymphadenopathy, JVD, or masses. LUNGS: Breath sounds equal, clear to auscultation bilaterally. No wheezes, and no crackles. No accessory muscle use. HEART: Regular rate and rhythm, normal S1 and S2 without murmur, rub or gallop. ABDOMEN: Soft, Nontender to palpation, bowel sounds heard, no guarding, no rebound, no masses. No hepatomegaly or splenomegaly. MUSCULOSKELETAL: Normal range of motion at all joints. No bony deformities or tenderness. No CVA tenderness. UPPER EXTREMITIES: 2+ pulses, warm, well-perfused. No cyanosis. No clubbing. No peripheral edema. LOWER EXTREMITIES: 2+ pulses, warm, well-perfused. No calf tenderness. No peripheral edema. NEUROLOGICAL: Cranial nerves II-XII intact. Normal speech. Normal gait. PSYCHIATRIC: Cooperative. Good eye contact. Appropriate mood and affect. SKIN: Warm, dry, normal turgor, no rashes or lesions noted, normal capillary refill. Active Medications Generic Name Dose Route Start Last Admin Trade Name Freq PRN Reason Stop Dose Admin Diphenhydramine HCl 25 mg 08/25/17 11:44 08/27/17 13:51 Benadryl Injection - IVPB 25 mg Q4H PRN Administration pruritis Enoxaparin Sodium 40 mg 08/25/17 11:45 08/27/17 09:30 Lovenox - SQ 40 mg DAILY NAVIN Administration Dextrose/Sodium Chloride 1,000 mls @ 100 mls/hr 08/24/17 19:15 08/27/17 09:31 D5-Ns - IV 100 mls/hr ASDIR NAVIN Administration Metronidazole 500 mg in 100 mls @ 100 mls/hr 08/25/17 01:00 08/27/17 10:28 Flagyl 500mg Premixed Ivpb - IVPB 100 mls/hr Q8H-IV NAVIN Administration CEFTRIAXONE 1 G/50 ML PREMIX 50 mls @ 100 mls/hr 08/25/17 13:00 08/27/17 09: 30 Ceftriaxone 1 Gm-D5w Bag IVPB 100 mls/hr DAILY NAVIN Administration Metoprolol Tartrate 5 mg 08/26/17 10:15 Lopressor Injection - IVPB Q8H PRN HYPERTENSION Morphine Sulfate 4 mg 08/24/17 19:13 08/27/17 09:30 Morphine Sulfate IVPUSH 4 mg Q6H PRN Administration PAIN Nicotine 21 mg 08/26/17 10:00 08/27/17 09:30 Nicoderm Patch - TD 21 mg DAILY NAVIN Administration Imaging: Acute sigmoid diverticulitis is seen with an associated small amount of adjacent extraluminal air consistent with localized perforation. No abscess is identified. Mildly prominent main pancreatic duct. Correlate with outpatient contrast enhanced MRI/MRCP. Prominent atherosclerotic vascular calcifications, ASSESSMENT/PLAN: 61 year old male with a past medical history of hypertension and L hip replacement presents to the hospital with acute abdominal pain likely 2/2 diverticulitis and bowel perforation #Sigmoid Diverticulitis with Bowel Perforation: -dw Dr. Hadley, transition to clear liquid diet, -Pain control w/ morphine 4mg Q6 PRN -leukocytosis likely 2/2 sigmoid inflammation -d/c fluids -surgical consultation Dr. Hadley -continue ceftriaxone/flagyl #Hypertension: patient was previously on losartan for blood pressure but stopped taking it a long time ago, currently controlled -no acute intervention at this time #Smoking: patient is a current smoker and is concerned about not being able to while hospitalized -provide nicotine patch 14mg PRN FEN -D5NS @ 100cc/hr -electrolytes normal -NPO Prophylaxis -SCDs Disposition -Admit to med-surg -Full Code Visit type - Emergency Visit Emergency Visit: No - New Patient This patient is new to me today: No - Critical Care Critical Care patient: No
[2017-08-27] MEDS ORDERED: amLODIPine BESYLATE 10 MG TABLET (FP) PO ONE (22:23)
[2017-08-28] MEDS: DEXTROSE 5%-NORMAL SALINE 1,000 ML IV SCH (01:40)
[2017-08-28] MEDS: METRONIDAZOLE 500 MG PREMIXED 500 MG/100 ML MG IVPB SCH ×3 (01:40→18:06)
[2017-08-28 07:32] LABS: BASOPHIL 0.3 % (0-2.0); EOSINOPHIL 5.8 % (0-4.5); MCH 28.7 pg (25.7-33.7); MCHC 33.6 g/dl (32.0-35.9); MEAN CELL VOLUME 85.4 fl (80-96); MEAN PLT VOLUME 8.3 fl (7.5-11.1); NEUTROPHILS 62.4 % (42.8-82.8); PLATELET COUNT 252 K/MM3 (134-434); RDW 13.8 % (11.9-15.9); WHITE BLOOD COUNT 6.4 K/mm3 (4.0-10.0)
[2017-08-28 07:56] LABS: ANION GAP 8 (8-16); CALCIUM 8.5 mg/dL (8.5-10.1); CO2 27 mmol/L (21-32); CREATININE 0.8 mg/dL (0.7-1.3); GLUCOSE,RANDOM 91 mg/dL (74-106); MAGNESIUM 1.9 mg/dL (1.8-2.4); PHOSPHOROUS 2.8 mg/dL (2.5-4.9); SGOT/AST 17 U/L (15-37); SGPT/ALT 18 U/L (12-78)
[2017-08-28 07:58] LABS: ALK PHOS 61 U/L (45-117); BILIRUBIN,TOTAL 0.8 mg/dL (0.2-1.0)
[2017-08-28] MEDS ORDERED: amLODIPine BESYLATE 10 MG TABLET (FP) PO SCH (09:00)
[2017-08-28] MEDS: ENOXAPARIN NA (PORCINE) 40 MG/0.4 ML DISP.SYRIN SQ SCH (09:06)
[2017-08-28] MEDS: NICOTINE 21 MG/24 HOURS TOPICAL PATCH TD SCH (09:06)
[2017-08-28] MEDS: CEFTRIAXONE 1 G/50 ML PREMIX 50 ML IVPB SCH (09:06)
[2017-08-28] MEDS ORDERED: methylPREDNISolone NA SUCC 125 MG/2 ML VIAL IVPUSH ONE (09:30)
[2017-08-28] MEDS ORDERED: LOSARTAN POTASSIUM 50 MG TABLET (FP) PO SCH (11:15)
--- NOTE | 2017-08-28 13:25 | PN ---
Teaching Attending Note Name of Resident: Tito Chamorro ATTENDING PHYSICIAN STATEMENT time of evaluation: 9:40 AM I saw and evaluated the patient. I reviewed the resident's note and discussed the case with the resident. I agree with the resident's findings and plan as documented. SUBJECTIVE: Patient seen and examined. Abdominal pain almost resolved. No nausea,vomiting or diarrhea. Tolerating clears well. Had itchy rash earlier today, that is currently improved. Feels stressed, eager to go home. OBJECTIVE: ASSESSMENT AND PLAN: Vital Signs Period Temp Pulse Resp BP Sys/Arroyo Pulse Ox Last 24 Hr 97.4 F-98.4 F 59-72 16-20 151-182/67-96 96 Intake & Output 08/25/17 08/26/17 08/27/17 08/28/17 23:59 23:59 23:59 23:59 Intake Total 2450 1150 2100 1200 Output Total 0 Balance 2450 1150 2100 1200 General: sitting in bed in no acute distress CVS: S1S2 regular Chest: CTAB, no rales or wheezing abdomen: soft, NT, ND, positive bowel sounds, no LLQ tenderness elicited, no voluntary or involuntary guarding or rigidity Extremities: no edema Skin: hives over trunk, resolving no (as discussed with patient and resident at bedside) Home Medication List Medication Instructions Recorded Confirmed Type Cetirizine HCl [Zyrtec -] 10 mg PO DAILY 08/24/17 08/24/17 History Multivitamins [Multivit ([facility] 1 tab PO DAILY 08/24/17 08/24/17 History Formulary)] Active Medications Generic Name Dose Route Start Last Admin Trade Name Braedenq PRN Reason Stop Dose Admin Amlodipine Besylate 10 mg 08/28/17 09:00 08/28/17 09:06 Norvasc - PO 10 mg DAILY NAVIN Administration Diphenhydramine HCl 25 mg 08/25/17 11:44 08/28/17 12:01 Benadryl Injection - IVPB 25 mg Q4H PRN Administration pruritis Enoxaparin Sodium 40 mg 08/25/17 11:45 08/28/17 09:06 Lovenox - SQ 40 mg DAILY NAVIN Administration Metronidazole 500 mg in 100 mls @ 100 mls/hr 08/25/17 01:00 08/28/17 10:39 Flagyl 500mg Premixed Ivpb - IVPB 100 mls/hr Q8H-IV NAVIN Administration CEFTRIAXONE 1 G/50 ML PREMIX 50 mls @ 100 mls/hr 08/25/17 13:00 08/28/17 09: 06 Ceftriaxone 1 Gm-D5w Bag IVPB 100 mls/hr DAILY NAVIN Administration Losartan Potassium 50 mg 08/28/17 11:15 08/28/17 11:57 Cozaar - PO 50 mg DAILY NAVIN Administration Metoprolol Tartrate 5 mg 08/26/17 10:15 Lopressor Injection - IVPB Q8H PRN HYPERTENSION Nicotine 21 mg 08/26/17 10:00 08/28/17 09:06 Nicoderm Patch - TD 21 mg DAILY NAVIN Administration Lab Results WBC 6.4 K/mm3 (4.0-10.0) D 08/28/17 06:00 RBC 5.00 M/mm3 (4.00-5.60) 08/28/17 06:00 Hgb 14.3 GM/dL (11.7-16.9) 08/28/17 06:00 Hct 42.7 % (35.4-49) 08/28/17 06:00 MCV 85.4 fl (80-96) 08/28/17 06:00 MCHC 33.6 g/dl (32.0-35.9) 08/28/17 06:00 RDW 13.8 % (11.9-15.9) 08/28/17 06:00 Plt Count 252 K/MM3 (134-434) 08/28/17 06:00 Sodium 140 mmol/L (136-145) 08/28/17 06:00 Potassium 3.9 mmol/L (3.5-5.1) 08/28/17 06:00 Chloride 105 mmol/L (98-107) 08/28/17 06:00 Carbon Dioxide 27 mmol/L (21-32) D 08/28/17 06:00 Anion Gap 8 (8-16) 08/28/17 06:00 BUN 6 mg/dL (7-18) L D 08/28/17 06:00 Creatinine 0.8 mg/dL (0.7-1.3) 08/28/17 06:00 Random Glucose 91 mg/dL (74-106) 08/28/17 06:00 Calcium 8.5 mg/dL (8.5-10.1) 08/28/17 06:00 INR 1.14 (0.82-1.09) 08/25/17 06:45 CT A/P reviewed Assessnent/plan: 61yo M with PMH continuous nicotine dependence presented to the ER with abdominal pain and found to have acute sigmoid diverticulitis with perforation -Acute sigmoid diverticulitis with perforation -Hives, stress induced per patient (similar prior history that is exacerbated by stress and relieved on by prednisone), reported seen by compliance specialist in the past -Acute kidney injury, resolved -Elevated BP -Continuous nicotine dependence plan: Ceftriaxone/flagyl day 4, atleast 5 days of IV antibiotics per surgery, serial abdominal exams. Markedly improved. Advance diet as tolerated. Will need outpatient colonoscopy once improved. Patient reports multiple prior episodes of stress induced hives/pruritis that ' kill him' that are only improved with prednisone, also has h/o lip/mouth swelling from same. Had extensive pruritic rash on trunk this AM that is almost resolved with solumedrol given earlier. Caution with steroids, avoid additional doses given ongoing infection with localized perforation. If recurrent concerning symptoms, will need to address with surgery. Resume home anti-hypertensives. DVTPPX Dispo plan d/c in 24 hours if tolerating diet well, continues to improve and no new concerns. Plan discussed with patient in detail, all questions answered.
--- NOTE | 2017-08-28 13:28 | PN ---
Physical Exam: SUBJECTIVE: Patient seen and examined at bedside. Patient is tolerating clear liquid diet. Denies abdominal pain, nausea, vomiting, fever, chills, diarrhea. States that he has a pruritic rash on his body from overnight. Given benadryl without any effect and solumedrol. OBJECTIVE: Vital Signs Period Temp Pulse Resp BP Sys/Arroyo Pulse Ox Last 24 Hr 97.4 F-98.4 F 59-72 16-20 151-182/67-96 96 GENERAL: Awake, alert, and fully oriented, in no acute distress. LUNGS: Breath sounds equal, clear to auscultation bilaterally. No wheezes, and no crackles. No accessory muscle use. HEART: Regular rate and rhythm, normal S1 and S2 without murmur, rub or gallop. ABDOMEN: Soft, Nontender to palpation, bowel sounds heard, no guarding, no rebound, no masses. No hepatomegaly or splenomegaly. MUSCULOSKELETAL: Normal range of motion at all joints. No bony deformities or tenderness. No CVA tenderness. NEUROLOGICAL: Cranial nerves II-XII intact. Normal speech. Normal gait. PSYCHIATRIC: Cooperative. Good eye contact. Appropriate mood and affect. SKIN: Warm, dry, normal turgor, no rashes or lesions noted, normal capillary refill. Laboratory Results - last 24 hr 08/28/17 08/28/17 06:00 06:00 WBC 6.4 D RBC 5.00 Hgb 14.3 Hct 42.7 MCV 85.4 MCH 28.7 MCHC 33.6 RDW 13.8 Plt Count 252 MPV 8.3 Neutrophils % 62.4 Lymphocytes % 22.6 D Monocytes % 8.9 Eosinophils % 5.8 H D Basophils % 0.3 Sodium 140 Potassium 3.9 Chloride 105 Carbon Dioxide 27 D Anion Gap 8 BUN 6 L D Creatinine 0.8 Creat Clearance w eGFR > 60 Random Glucose 91 Calcium 8.5 Phosphorus 2.8 Magnesium 1.9 Total Bilirubin 0.8 AST 17 D ALT 18 Alkaline Phosphatase 61 Total Protein 6.0 L Albumin 3.0 L Active Medications Generic Name Dose Route Start Last Admin Trade Name Freq PRN Reason Stop Dose Admin Amlodipine Besylate 10 mg 08/28/17 09:00 08/28/17 09:06 Norvasc - PO 10 mg DAILY NAVIN Administration Diphenhydramine HCl 25 mg 08/25/17 11:44 08/28/17 12:01 Benadryl Injection - IVPB 25 mg Q4H PRN Administration pruritis Enoxaparin Sodium 40 mg 08/25/17 11:45 08/28/17 09:06 Lovenox - SQ 40 mg DAILY NAVIN Administration Metronidazole 500 mg in 100 mls @ 100 mls/hr 08/25/17 01:00 08/28/17 10:39 Flagyl 500mg Premixed Ivpb - IVPB 100 mls/hr Q8H-IV NAVIN Administration CEFTRIAXONE 1 G/50 ML PREMIX 50 mls @ 100 mls/hr 08/25/17 13:00 08/28/17 09: 06 Ceftriaxone 1 Gm-D5w Bag IVPB 100 mls/hr DAILY NAVIN Administration Loratadine 10 mg 08/29/17 10:00 Claritin - PO DAILY NAVIN Losartan Potassium 50 mg 08/28/17 11:15 08/28/17 11:57 Cozaar - PO 50 mg DAILY NAVIN Administration Metoprolol Tartrate 5 mg 08/26/17 10:15 Lopressor Injection - IVPB Q8H PRN HYPERTENSION Nicotine 21 mg 08/26/17 10:00 08/28/17 09:06 Nicoderm Patch - TD 21 mg DAILY NAVIN Administration Imaging: Acute sigmoid diverticulitis is seen with an associated small amount of adjacent extraluminal air consistent with localized perforation. No abscess is identified. Mildly prominent main pancreatic duct. Correlate with outpatient contrast enhanced MRI/MRCP. Prominent atherosclerotic vascular calcifications, ASSESSMENT/PLAN: 61 year old male with a past medical history of hypertension and L hip replacement presents to the hospital with acute abdominal pain likely 2/2 diverticulitis and bowel perforation #Sigmoid Diverticulitis with Bowel Perforation: -pt tolerating clear liquid diet, transition to full-liquid diet as per surgery recs. -Per surgery, patient should be on full liquid diet for 1 week post discharge and sent home on augmentin 875 bid for 5 days and recommendations for outpatient colonoscopy/elective surgery -leukocytosis likely 2/2 sigmoid inflammation -surgical consultation Dr. Hadley -continue ceftriaxone/flagyl #Hypertension: patient was previously on losartan for blood pressure but stopped taking it a long time ago, currently elevated -patient was hypertensive in the past -start losartan 50mg PO daily #Smoking: patient is a current smoker and is concerned about not being able to while hospitalized -provide nicotine patch 14mg PRN -possible chantix recommendation at home FEN -D5NS @ 100cc/hr -electrolytes normal -full liquid diet Prophylaxis -SCDs Disposition -Monitor on med-surg, DC planning for tomorrow -Full Code Visit type - Emergency Visit Emergency Visit: No - New Patient This patient is new to me today: No - Critical Care Critical Care patient: No
--- NOTE | 2017-08-28 13:43 | PN ---
Progress Note (short form) - Note Progress Note: surgery pt seen and examined. feels well. tolerated clear liquids. no pain afebrile abd- soft, nt Plan- advance to full liquids. poss d/c tomorrow on augmentin 875 bid for 5 days if remains well. would stay on liquid diet until next week. needs outpt colonoscopy and should consider elective sigmoid colectomy.
[2017-08-28 20:53] VITALS: PULSE 62
[2017-08-29 01:41] VITALS: BP 155/80; TEMP 97.5
[2017-08-29] MEDS: METRONIDAZOLE 500 MG PREMIXED 500 MG/100 ML MG IVPB SCH (01:53)
--- NOTE | 2017-08-29 08:11 | DS ---
Physical Exam: SUBJECTIVE: Patient seen and examined at bedside. Tolerating full liquid diet. Denies any acute complaints. No more abdominal pain. Having normal bowel movements. OBJECTIVE: Vital Signs Period Temp Pulse Resp BP Sys/Arroyo Pulse Ox Last 24 Hr 97.5 F-98.3 F 61-72 18-20 149-168/76-91 PHYSICAL EXAM GENERAL: The patient is awake, alert, and fully oriented, in no acute distress. HEAD: Normal with no signs of trauma. EYES: PERRL, extraocular movements intact, sclera anicteric, conjunctiva clear. ENT: Ears normal, nares patent, oropharynx clear without exudates, moist mucous membranes. NECK: Trachea midline, full range of motion, supple. LUNGS: Breath sounds equal, clear to auscultation bilaterally, no wheezes, no crackles, no accessory muscle use. HEART: Regular rate and rhythm, S1, S2 without murmur, rub or gallop. ABDOMEN: Soft, nontender, nondistended, normoactive bowel sounds, no guarding, no rebound, no hepatosplenomegaly, no masses. EXTREMITIES: 2+ pulses, warm, well-perfused, no edema. NEUROLOGICAL: Cranial nerves II through XII grossly intact. Normal speech, gait not observed. PSYCH: Normal mood, normal affect. SKIN: Warm, dry, normal turgor, no rashes or lesions noted. LABS Laboratory Results - last 24 hr 08/28/17 06:00 Sodium 140 Potassium 3.9 Chloride 105 Carbon Dioxide 27 D Anion Gap 8 BUN 6 L D Creatinine 0.8 Creat Clearance w eGFR > 60 Random Glucose 91 Calcium 8.5 Phosphorus 2.8 Magnesium 1.9 Total Bilirubin 0.8 AST 17 D ALT 18 Alkaline Phosphatase 61 Total Protein 6.0 L Albumin 3.0 L HOSPITAL COURSE: Date of Admission:08/24/17 61 year old male with a past medical history of hypertension and L hip replacement presented to the hospital pain with abdominal pain and uneasiness for several day duration. Patient was scanned and found to have acute diverticulitis with regional bowel perforation. Patient was admitted to med surg for management conservatively with fluids and bowel rest. Patient appeared clinically benign, without any severe abdominal complaints. Patient was treated with antibiotics in the hospital. Within a couple of days, patient was transitioned to a clear liquid diet, which he tolerated and had no further abdominal pain. Patient was found to be hypertensive and was started on an antihypertensive medication that he was on at home several months ago. The day before discharge, patient was complaining of a rash, which was treated with steroids. He was transitioned to full liquids. Patient tolerated full liquids and was still asymptomatic. Patient was discharged with instructions to continue a full liquid diet for 1 week, continue antibiotics, and to follow up with the surgeon as an outpatient. On discharge, patient's blood pressure medications were restarted. Date of Discharge: 08/29/17 Minutes to complete discharge: 30 Discharge Summary Reason For Visit: DIVERTICULOSIS OF COLON, PERFORATED DIVERTICULUM Current Active Problems Perforated diverticulum of large intestine (Acute) Condition: Stable - Instructions Diet, Activity, Other Instructions: You were admitted to the hospital for the treatment of diverticulitis with bowel perforation Medical Recommendations: 1. Take the antibiotic augmentin 875mg twice a day for 5 days. 2. Take it slow with your diet - would recommend a full liquid diet until next week and then as directed by your doctor. 3. You need to schedule an appointment with a machine zipper trimmer for an outpatient colonoscopy within 3 weeks. We will provide a referral for Dr. Aguero , one of the gastroenterologists affiliated with [facility]. 4. You need to schedule an appointment with the surgeon Dr. Hadley within 3 weeks to discuss considerations for an elective colectomy procedure. 5. Please make an appointment with a primary care physician within 1 week of discharge 6. Your CT scan Abdomen/Pelvis also showed incidental findings as follows: -mildly dilated pancreatic duct, please discuss with your doctor if outpatient MRI would be indicated. your liver blood test has been normal. -Also discuss with your doctor for outpatient cardiac testing including stress testing and further tests as deemed necessary. Medication Reminders: 1. In the hospital you were started on Losartan 50mg once a day for high blood pressure. Please take this medication at home and follow up with your primary care physician in order to adjust the dose as appropriate for you. 2. You will be prescribed chantix on discharge for smoking cessation; please take as follows: -for first 3 days of taking Chantix, take 1 pill daily (0.5mg) -for days 4-7 of taking Chantix, take 2 pills daily (0.5mg) -follow up with a primary care physician for further smoking cessation goals Do not drink alcohol while on chantix, also avoid alcohol till your belly symptoms have rully resolved and you have been evaluated by your doctor and surgeon. If you experience further abdominal pain, nausea, vomiting, fever, chills, chest pain, shortness of breath, uncontrolled diarrhea, please return to the emergency room immediately. Disposition: HOME - Home Medications Comprehensive Discharge Medication List: Ambulatory Orders Cetirizine HCl [Zyrtec -] 10 mg PO DAILY 08/24/17 Multivitamins [Multivit ([facility] Formulary)] 1 tab PO DAILY 08/24/17 Losartan Potassium 50 mg PO DAILY #14 tablet 08/28/17 Varenicline Tartrate [Chantix] 0.5 mg NR DAILY #15 tab 08/28/17 Amoxicillin/Potassium Clav [Augmentin 875-125 Tablet] 1 tablet PO BID #10 tablet 08/29/17 This patient is new to me today: No Emergency Visit: No Critical Care patient: No - Discharge Referral Referred to [facility] Med P.C.: No
--- NOTE | 2017-08-29 08:44 | PN ---
Teaching Attending Note Name of Resident: Tito Chamorro ATTENDING PHYSICIAN STATEMENT z I saw and evaluated the patient. I reviewed the resident's note and discussed the case with the resident. I agree with the resident's findings and plan as documented. SUBJECTIVE: Patient seen and examined, abdominal symptoms resolved, no nausea, vomiting,f heather or pain. Tolerating full liquid diet well. Eager to go home. OBJECTIVE: Vital Signs Period Temp Pulse Resp BP Sys/Arroyo Pulse Ox Last 24 Hr 97.5 F-98.3 F 61-72 18-20 149-168/76-91 Intake & Output 08/26/17 08/27/17 08/28/17 08/29/17 23:59 23:59 23:59 23:59 Intake Total 1150 2100 2650 100 Output Total 0 Balance 1150 2100 2650 100 GEneral: sitting in bed in no acute distress Abdomen: soft, NT, ND, positive bowel sounds, no voluntary or involuntary guarding or rigidity Home Medication List Medication Instructions Recorded Confirmed Type Cetirizine HCl [Zyrtec -] 10 mg PO DAILY 08/24/17 08/24/17 History Multivitamins [Multivit ([facility] 1 tab PO DAILY 08/24/17 08/24/17 History Formulary)] Active Medications Generic Name Dose Route Start Last Admin Trade Name Freq PRN Reason Stop Dose Admin Diphenhydramine HCl 25 mg 08/25/17 11:44 08/28/17 12:01 Benadryl Injection - IVPB 25 mg Q4H PRN Administration pruritis Enoxaparin Sodium 40 mg 08/25/17 11:45 08/28/17 09:06 Lovenox - SQ 40 mg DAILY NAVIN Administration Metronidazole 500 mg in 100 mls @ 100 mls/hr 08/25/17 01:00 08/29/17 01:53 Flagyl 500mg Premixed Ivpb - IVPB 100 mls/hr Q8H-IV NAVIN Administration CEFTRIAXONE 1 G/50 ML PREMIX 50 mls @ 100 mls/hr 08/25/17 13:00 08/28/17 09: 06 Ceftriaxone 1 Gm-D5w Bag IVPB 100 mls/hr DAILY NAVIN Administration Loratadine 10 mg 08/29/17 10:00 Claritin - PO DAILY NAVIN Losartan Potassium 50 mg 08/28/17 11:15 08/28/17 11:57 Cozaar - PO 50 mg DAILY NAVIN Administration Metoprolol Tartrate 5 mg 08/26/17 10:15 Lopressor Injection - IVPB Q8H PRN HYPERTENSION Nicotine 21 mg 08/26/17 10:00 08/28/17 09:06 Nicoderm Patch - TD 21 mg DAILY NAVIN Administration Lab Results WBC 6.4 K/mm3 (4.0-10.0) D 08/28/17 06:00 RBC 5.00 M/mm3 (4.00-5.60) 08/28/17 06:00 Hgb 14.3 GM/dL (11.7-16.9) 08/28/17 06:00 Hct 42.7 % (35.4-49) 08/28/17 06:00 MCV 85.4 fl (80-96) 08/28/17 06:00 MCHC 33.6 g/dl (32.0-35.9) 08/28/17 06:00 RDW 13.8 % (11.9-15.9) 08/28/17 06:00 Plt Count 252 K/MM3 (134-434) 08/28/17 06:00 Sodium 140 mmol/L (136-145) 08/28/17 06:00 Potassium 3.9 mmol/L (3.5-5.1) 08/28/17 06:00 Chloride 105 mmol/L (98-107) 08/28/17 06:00 Carbon Dioxide 27 mmol/L (21-32) D 08/28/17 06:00 Anion Gap 8 (8-16) 08/28/17 06:00 BUN 6 mg/dL (7-18) L D 08/28/17 06:00 Creatinine 0.8 mg/dL (0.7-1.3) 08/28/17 06:00 Random Glucose 91 mg/dL (74-106) 08/28/17 06:00 Calcium 8.5 mg/dL (8.5-10.1) 08/28/17 06:00 INR 1.14 (0.82-1.09) 08/25/17 06:45 ASSESSMENT AND PLAN: Markedly improved, abdominal symptoms resolved. Tolerating diet well. Surgery input appreciated. Full liquid diet for 1 week. Augmentin x 5 days. Patient advised home BP monitoring and notify MD if SBP > 140 or <100 or any dizziness noted. Also discussed in detail about need for colonoscopy and outpatient surgery follow up for eventual elective sigmoid resection. Patient relays full understanding, agrees to follow up. D/c home today with outpatient follow up.
[2017-08-29] MEDS ORDERED: LORATADINE 10 MG TABLET PO SCH (10:00)
== END 2017-08-29 08:48 | disposition home or self-care (01) | DRG 392 ==
LOC: JER 11:04 → JERBED 17:57 → J6S 21:51
PROVIDERS: ADMIT Internal Medicine; ATTEND Hospitalist
DX: K57.20 Diverticulitis of large intestine with perforation and abscess without bleeding (principal); N17.9 Acute kidney failure, unspecified; F17.210 Nicotine dependence, cigarettes, uncomplicated; I10 Essential (primary) hypertension; Z96.642 Presence of left artificial hip joint; L29.9 Pruritus, unspecified; E86.0 Dehydration; K86.89 Other specified diseases of pancreas
CPT/HCPCS: 36415; 74177-TC; 80053; 81003; 82550; 83690; 83735; 84100; 84484; 85025; 85610; 85730; 93005; 93010; 97116-GP; 97161-GP; 99283-25